=== PATIENT | female | born 1960 | race Caucasian/White ===

== ENCOUNTER → 2018-09-01 | Outpatient (CLI) | payer MEDICARE ==
--- NOTE | 2018-09-01 12:33 | Diagnostic Imaging Report ---
PROCEDURE: US DOPPLER ABD/COMPLETE TECHNIQUE: Multiple real-time grayscale images were obtained over the kidneys in various projections. Duplex evaluation of renal arteries was also attempted. INDICATION: Hypertension. COMPARISON: There are no prior studies available for comparison. FINDINGS: Both kidneys were identified. The right kidney measures 10.6 x 3.3 x 4.4 cm while the left kidney measures 10.5 x 4.8 x 4.8 cm. There is no solid renal mass or hydronephrosis of either kidney. The renal cortices are normal in thickness and echogenicity. Spectral and color-flow imaging of the renal arteries was performed. Unfortunately, the aorta was obscured by bowel gas, and an accurate velocity of the aorta could not be obtained. Consequently, the renal artery/aorta ratios could not be established. However, the renal artery velocities are not elevated. Therefore, I do not feel that there is any hemodynamically significant stenosis of either renal artery to account for the patient's hypertension. If further evaluation is desired, then CTA of the aorta and renal arteries would be recommended. The bladder was imaged during the course of the exam. The bladder is only partially filled and consequently not well evaluated. There is no obvious bladder abnormality evident. Both ureteral jets were noted. IMPRESSION: 1. There is no evidence for a solid renal mass or for an acute abnormality of either kidney. 2. The renal artery/aorta ratio could not be established as the aorta was obscured by bowel gas. However, the renal artery velocities do not appear to be elevated, and it is unlikely that there is a hemodynamically significant stenosis. Recommendations as above. 3. The urinary bladder is grossly unremarkable. Dictated by: Dictated on workstation # [id number]
--- NOTE | 2018-09-01 12:54 | Diagnostic Imaging Report ---
Bilateral knees at 11:09 Indication: Knee pain. 3 views of each knee joint were obtained. There are no prior studies available for comparison. There is no fracture, dislocation or acute bony abnormality evident. 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 There is also at least mild narrowing of the lateral compartment of each knee joint. No stenosis of the lateral meniscus of the left knee is suspected as well. The soft tissues are unremarkable. Impression: 1. There is no evidence for an acute bony abnormality. 2. 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 Dictated by: Dictated on workstation # [id number]
== END ==
LOC: RAD 08:00
PROVIDERS: ATTEND Nurse Practitioner Family
DX: M17.0 Bilateral primary osteoarthritis of knee (principal); I10 Essential (primary) hypertension
CPT/HCPCS: 93975

== ENCOUNTER → 2021-11-20 | Outpatient (CLI) | payer MEDICARE ==
--- NOTE | 2021-11-20 09:31 | Diagnostic Imaging Report ---
PROCEDURE: US Renal Bilateral. TECHNIQUE: Multiple Real-time grayscale images were obtained over the kidneys in various projections bilaterally. INDICATION: Chronic kidney disease. COMPARISON: 09/01/2018. FINDINGS: The right kidney measures 10 cm and the left kidney 9 cm. The size and echogenicity are normal. There is no hydronephrosis or mass. The urinary bladder is grossly unremarkable. IMPRESSION: Unremarkable renal sonogram. No interval change. Dictated by: Dictated on workstation # [id number]
== END ==
LOC: RAD 08:54
PROVIDERS: ATTEND Internal Medicine Nephrology
DX: I12.9 Hypertensive chronic kidney disease with stage 1 through stage 4 chronic kidney disease, or unspecified chronic kidney disease (principal); N18.32 Chronic kidney disease, stage 3b; Z79.1 Long term (current) use of non-steroidal anti-inflammatories (NSAID)
CPT/HCPCS: 76770